=== PATIENT | male | born 1940 | race Caucasian/White ===

== ENCOUNTER 2016-11-16 09:11 | Emergency (ER) | payer MEDICARE, MEDICAID ==
[2016-11-16 09:22] VITALS: TEMP 97.3
[2016-11-16] MEDS ORDERED: LIDOCAINE HCL 1% MDV SOL SC ONE (09:38)
[2016-11-16] MEDS ORDERED: LIDOCAINE HCL 1% MPF SOL ONE (09:39)
[2016-11-16 11:09] VITALS: O2SAT 94
[2016-11-16 11:10] VITALS: BP 123/99; PULSE 90; RESP 16
== END 2016-11-16 10:22 | disposition home or self-care (01) | DRG 605 ==
LOC: ED 09:11
DX: S01.81XA Laceration without foreign body of other part of head, initial encounter (principal); W01.198A Fall on same level from slipping, tripping and stumbling with subsequent striking against other object, initial encounter
CPT/HCPCS: 99283; J2001

== ENCOUNTER 2017-01-21 16:51 | Observation (INO) | payer MEDICARE, MEDICAID ==
[2017-01-21] MEDS ORDERED: LACTATED RINGERS 1,000 ML IV ONE (17:03)
[2017-01-21 17:39] LABS: APPEARANCE,URINE Slightly Cloudy; BILIRUBIN,URINE NEGATIVE (NEGATIVE); COLOR,URINE Yellow; GLUCOSE, URINE (UA) NEGATIVE (NEGATIVE); KETONES,URINE NEGATIVE (NEGATIVE); LEUKOCYTE ESTERASE ,URINE 2+ (NEGATIVE); NITRATE,URINE NEGATIVE (NEGATIVE); OCCULT BLOOD,URINE 1+ (NEG-TRACE); PH,URINE 5.5; UROBILINOGEN,URINE 0.2 (0.2-1.0 EU)
[2017-01-21 17:49] LABS: WBC,URINE TNTC (0-5AV/HPF)
[2017-01-21] MEDS ORDERED: LEVOFLOXACIN 25 MG/ML 750 MG in SODIUM CHLORIDE 0.9% 250 ML 150 ML IV SCH (18:00)
[2017-01-21] MEDS ORDERED: LEVOFLOXACIN 25 MG/ML SOL IV ONE (18:11)
[2017-01-21] MEDS ORDERED: Non-Formulary Medication MISC (Nystatin 30 Gm Cream 1 APPL) TOP PRN (18:44)
[2017-01-21] MEDS: DEXTROSE/SALINE 0.45% 1,000 ML IV SCH (20:56)
[2017-01-21] MEDS ORDERED: Non-Formulary Medication MISC (Carbidopa/Levodopa 25/100 1 TAB) PO SCH (21:00)
[2017-01-21] MEDS ORDERED: Non-Formulary Medication MISC (Divalproex Sodium 1,000 mg) PO SCH (21:00)
[2017-01-21] MEDS ORDERED: TRAZODONE HYDROCHLORIDE 50 MG TAB PO SCH (21:00)
[2017-01-21] MEDS: MIRTAZAPINE 15 MG TAB PO SCH (21:01)
[2017-01-21] MEDS: ROPINIROLE HCL PO SCH (21:02)
[2017-01-22] MEDS ORDERED: LEVOFLOXACIN 25 MG/ML 500 MG in SODIUM CHLORIDE 0.9% 100 ML 100 ML IV SCH (09:30)
[2017-01-22] MEDS: FUROSEMIDE 20 MG TAB PO SCH (09:32)
[2017-01-22] MEDS: ROPINIROLE HCL 0.5 MG TAB PO SCH ×3 (09:32→20:17)
[2017-01-22] MEDS: CHOLECALCIFEROL 1,000 IU TAB PO SCH (09:32)
[2017-01-22] MEDS: ROPINIROLE HCL PO SCH (09:33)
[2017-01-22] MEDS: DEXTROSE/SALINE 0.45% 1,000 ML IV SCH (09:38)
[2017-01-22] MEDS: LEVOFLOXACIN 500 MG in 100 ML (PREMIX) IV SCH (09:38)
[2017-01-22 10:03] LABS: BASOPHILS % (AUTO) 1 % (0-3); EOSINOPHILS % (AUTO) 6 % (0-9); HEMATOCRIT 34 % (39-53); MEAN CORPUSCULAR VOLUME 88 fL (80-100); MONOCYTES % (AUTO) 14.5 % (0-12); NEUTROPHILS % (AUTO) 59.8 % (37-80)
[2017-01-22 10:14] LABS: CALCIUM 8.2 mg/dl (8.5-10.1)
[2017-01-22] MEDS: MIRTAZAPINE 15 MG TAB PO SCH (20:17)
[2017-01-22] MEDS ORDERED: CARBIDOPA/LEVODOPA 25/100 TAB PO SCH (21:00)
[2017-01-22] MEDS ORDERED: DIVALPROEX 250 MG TAB.ER.24H PO SCH (21:00)
[2017-01-22] MEDS ORDERED: TRAZODONE HYDROCHLORIDE 50 MG TAB PO SCH (21:00)
[2017-01-23] MEDS: DEXTROSE/SALINE 0.45% 1,000 ML IV SCH (06:42)
[2017-01-23 09:14] VITALS: BP 144/78; PULSE 86; RESP 20; TEMP 97.4; O2SAT 96
[2017-01-23] MEDS: ROPINIROLE HCL 0.5 MG TAB PO SCH (09:17)
[2017-01-23] MEDS: FUROSEMIDE 20 MG TAB PO SCH (09:17)
[2017-01-23] MEDS: CHOLECALCIFEROL 1,000 IU TAB PO SCH (09:17)
[2017-01-23] MEDS: LEVOFLOXACIN 500 MG in 100 ML (PREMIX) IV SCH (09:18)
== END 2017-01-23 10:00 | DRG 690 ==
LOC: ED 16:51 → ACUTE CARE 18:25 → UNDOADMOB 18:25 → ACUTE CARE 19:30
PROVIDERS: ADMIT Family Medicine; ATTEND Family Medicine
DX: N39.0 Urinary tract infection, site not specified (principal); R40.0 Somnolence
CPT/HCPCS: 36415; 80048; 81001; 85025; 87077; 87088; 87186; 99070; 99284; J1956